=== PATIENT | female | born 1965 | race Caucasian/White ===

== ENCOUNTER 2019-06-08 08:46 | Emergency (ER) | payer OTHER ==
[2019-06-08] MEDS ORDERED: TRAMADOL HCL 50 MG TABLET ONE (10:24)
== END 2019-06-08 10:32 | disposition home or self-care (01) ==
LOC: EDH 08:46
DX: M25.561 Pain in right knee (principal); M25.552 Pain in left hip; I10 Essential (primary) hypertension; Z90.49 Acquired absence of other specified parts of digestive tract; Z90.710 Acquired absence of both cervix and uterus; W18.39XA Other fall on same level, initial encounter; Y93.01 Activity, walking, marching and hiking; Y92.89 Other specified places as the place of occurrence of the external cause; Y99.8 Other external cause status
CPT/HCPCS: 29505; 73502; 73562